=== PATIENT | male | born 1970 | race Caucasian/White ===

== ENCOUNTER 2016-12-20 09:49 | Emergency (ER) | payer SELFPAY ==
[~2016-12-20] VITALS: Ht 177.8 cm; Wt 99.8 kg
[2016-12-20 09:50] VITALS: BP 145/88; PULSE 87; RESP 18; TEMP 98.4; O2SAT 100
--- NOTE | 2016-12-20 09:50 | NUR ---
BROUGHT BACK TO BED #5 AND TRIAGED. REPORT GIVEN TO JOHN
--- NOTE | 2016-12-20 09:55 | NUR ---
ER at bedside examining patient.
--- NOTE | 2016-12-20 09:56 | NUR ---
Pt presenst to ED c/o L shoulder pain s/p lifting cement bags last wekk per report. Pt denies significant med hx.pt has guarding noted and decreased ROM.
--- NOTE | 2016-12-20 10:05 | NUR ---
Patient transported to radiology via ambulation, accompanied by rad staff.
--- NOTE | 2016-12-20 10:10 | NUR ---
Pt returned from rad dept tolerated well.
[2016-12-20] MEDS ORDERED: TRIAMCINOLONE ACETONIDE 40 MG/ML IM ONE (10:15)
[2016-12-20] MEDS ORDERED: LIDOCAINE 1% 10 MG/ML, 20 ML MDV INJ ONE (10:15)
[2016-12-20] MEDS ORDERED: KETOROLAC TROMETHAMINE 60 MG/2 ML VIAL IM ONE (10:15)
--- NOTE | 2016-12-20 10:20 | NUR ---
Pt tolerated medication well.Will monitor prior to D/C for improvement.
[2016-12-20 10:50] VITALS: BP 145/88; PULSE 87; RESP 18; TEMP 98.4; O2SAT 100
--- NOTE | 2016-12-20 10:50 | NUR ---
Patient given written and verbal discharge instructions and verbalizes understanding. ER MD discussed with patient the results and treatment provided. Patient in stable condition. ID arm band removed. Rx of [place] given. Patient educated on pain management and to follow up with PMD. Pain Scale 3. Opportunity for questions provided and answered.
== END 2016-12-20 10:50 | disposition home or self-care (01) ==
LOC: SED 09:49
DX: M25.512 Pain in left shoulder (principal)
CPT/HCPCS: 20610; 73030; 96372; 99284; J1885; J2001; J3301

== ENCOUNTER 2020-10-25 15:53 | Emergency (ER) | payer MEDICAID ==
[~2020-10-25] VITALS: Ht 175.3 cm; Wt 106.6 kg
[2020-10-25 15:55] VITALS: BP_SYST 163
[2020-10-25] MEDS ORDERED: NACL 0.9% 1,000 ML IV ONE (16:30)
[2020-10-25 16:58] LABS: BASOPHILS # (AUTO) 0.1 K/uL (0.0-0.2); BASOPHILS % (AUTO) 0.4 % (0.0-2.0); EOSINOPHILS % (AUTO) 0.1 % (0.0-4.0); HEMATOCRIT 46.2 % (36-54); HEMOGLOBIN 15.5 g/dL (14.0-18.0); LYMPHOCYTES # (AUTO) 1.3 K/uL (1.0-5.5); LYMPHOCYTES % (AUTO) 9.4 % (20.5-51.5); MEAN CORPUSCULAR HEMOGLOBIN 33 pg (27-31); MEAN CORPUSCULAR HGB CONC 34 % (32-36); MEAN CORPUSCULAR VOLUME 97 fL (79.0-98.0); MONOCYTES # (AUTO) 1.4 K/uL (0.0-1.0); MONOCYTES % (AUTO) 9.9 % (1.7-9.3); NEUTROPHILS # (AUTO) 11.1 K/uL (1.8-7.7); NEUTROPHILS % (AUTO) 80.2 % (40.0-70.0); PLATELET COUNT (AUTO) 355 K/uL (130-430); RED BLOOD CELL COUNT(AUTO) 4.76 MIL/uL (4.2-6.2); RED CELL DISTRIBUTION WIDTH 12.4 % (9.0-15.0); WHITE BLOOD COUNT (AUTO) 13.9 K/uL (4.8-10.8)
[2020-10-25 17:10] LABS: ANION GAP 19 (5-15); CALCIUM 9.6 mg/dL (8.4-11.0); CHLORIDE 104 mmol/L (98-107); CREATININE 2.66 mg/dL (0.55-1.30); GLUCOSE 133 mg/dL (70-99); POTASSIUM 4.4 mmol/L (3.5-5.1); SODIUM SERUM 143 mmol/L (136-145); UREA NITROGEN, BLOOD 25 mg/dL (8-21)
[2020-10-25 17:16] LABS: GFR AFRICAN AMERICAN 33 mL/min (>90)
[2020-10-25 17:24] LABS: ALANINE AMINOTRANSFERASE 101 U/L (12-78); ALBUMIN 4.5 g/dL (3.4-4.8); ASPARTATE AMINOTRANSFERASE 73 U/L (10-37); TOTAL BILIRUBIN 1.5 mg/dL (0.0-1.0)
[2020-10-25 17:47] LABS: ALCOHOL, BLOOD < 3 mg/dL (<10)
[2020-10-25 17:49] LABS: CKMB RELATIVE INDEX 1.1 (0.0-2.9); CREATINE KINASE MB 15.7 ng/mL (0-3.6)
[2020-10-25 19:43] VITALS: BP_SYST 148
== END 2020-10-25 18:45 | disposition left against medical advice (07) ==
LOC: SED 15:53
DX: R07.89 Other chest pain (principal); E86.0 Dehydration; F14.90 Cocaine use, unspecified, uncomplicated; F12.90 Cannabis use, unspecified, uncomplicated; F15.90 Other stimulant use, unspecified, uncomplicated
CPT/HCPCS: 36415; 71045; 80053; 82550; 82553; 84484; 85025; 93005; 99285; G0482; J7030

== ENCOUNTER 2021-10-01 11:15 | Emergency (ER) | payer MEDICAID ==
[~2021-10-01] VITALS: Ht 172.7 cm; Wt 90.7 kg
[2021-10-01 11:23] VITALS: BP_SYST 134
[2021-10-01] MEDS ORDERED: LIDOCAINE 2%, 20 ML MDV INJ ONE (11:45)
[2021-10-01] MEDS ORDERED: DIPH-TET-PERTUS Vaccine 0.5 ML VIAL (ADACEL) I.M. ONE (11:45)
[2021-10-01] MEDS ORDERED: IBUP800T54 PO (13:18)
[2021-10-01] MEDS ORDERED: AMOX-423 PO (13:18)
[2021-10-01 13:28] VITALS: BP_SYST 134
[2021-10-01] MEDS ORDERED: AMOXICILLIN/CLAVULANATE POTASSIUM 500 MG TABLET PO ONE (13:30)
== END 2021-10-01 13:28 | disposition home or self-care (01) ==
LOC: SED 11:15
DX: L02.511 Cutaneous abscess of right hand (principal)
CPT/HCPCS: 26010; 90471; 90715; 99283; J2001

== ENCOUNTER 2022-08-09 11:56 | Emergency (ER) | payer MEDICAID ==
[~2022-08-09] VITALS: Ht 177.8 cm; Wt 94.3 kg
[~2022-08-09 11:56] MED LIST: AMOX-423 PO; IBUP800T54 PO
--- NOTE | 2022-08-09 12:00 | NUR ---
Pt brought by self, A&Ox4, pt presents to ER with cough/ congestion x3 days, skin pink and warm, cap refill <3, will cont to monitor
[2022-08-09 12:01] VITALS: BP_SYST 155
--- NOTE | 2022-08-09 13:30 | NUR ---
Dr Adame evaluating patient at bedside
[2022-08-09] MEDS ORDERED: HYDR-3917 PO (13:55)
[2022-08-09] MEDS ORDERED: IBUP-1971 PO (13:55)
[2022-08-09] MEDS ORDERED: PSEU30TA36 PO (13:55)
[2022-08-09 17:30] VITALS: BP_SYST 155
--- NOTE | 2022-08-09 17:40 | NUR ---
Patient given written and verbal discharge instructions and verbalizes understanding. ER MD discussed with patient the results and treatment provided. Patient in stable condition. ID arm band removed. No Rx given. Patient educated on pain management and to follow up with PMD. Pain Scale 2/10. Opportunity for questions provided and answered. Medication side effect fact sheet provided.
== END 2022-08-09 17:40 | disposition home or self-care (01) ==
LOC: SED 11:56
DX: S62.001A Unspecified fracture of navicular [scaphoid] bone of right wrist, initial encounter for closed fracture (principal); Z79.899 Other long term (current) drug therapy; Z20.822 Contact with and (suspected) exposure to COVID-19; W01.0XXA Fall on same level from slipping, tripping and stumbling without subsequent striking against object, initial encounter; Y93.89 Activity, other specified; Y92.89 Other specified places as the place of occurrence of the external cause; Y99.8 Other external cause status
CPT/HCPCS: 36415; 71045; 99284